=== PATIENT | male | born 1980 | race African-American/Black ===

== ENCOUNTER 2016-09-22 09:18 | Emergency (ER) | payer OTHER ==
--- NOTE | ~2016-09-22 | CT114 ---
[facility] A Service of [facility] & [facility] RADIOLOGY TEXT RESULTS PATIENT: KAYLEY BROCK SR. LOCATION: [facility] : 76 UNIT #: [id number] AGE: [address]: PHOENIX MAYER SEX: M ORDER DR: [id number] [facility] [address] [place], [place] [address] [id number] MR#: [id number] #: [id number] NAME: KAYLEY BROCK SR. : 1980 SEX: M STUDY DATE/TIME: 09/22/2016 11:48 UNIT: [facility] ROOM: STUDY DESCRIPTION: CT Soft Tissue Neck W Cont Attending Physician: Phoenix Mayer Aprn Ordering Physician: Tameka Hernandez M.D. Primary Care Physician: No Primary Care Physician MEDICAL IMAGING REPORT This report is preliminary unless electronic signature is present EXAM CT neck soft tissue with contrast dated 09/22/2016. COMPARISON None HISTORY Sore throat, headache, nausea and diarrhea for [address] neck soft tissue was obtained with IV contrast in the axial plane followed by sagittal and coronal reformats. This CT exam was performed with one or more of the following radiation dose reduction techniques: automatic exposure control, adjustment of mA and/or kV according to patient size, and iterative reconstruction. FINDINGS Prominence of adenoids is seen in the posterior and superior nasopharyngeal wall without any discrete lesions. There is also enlargement of bilateral tonsils, particularly in the right. Aerodigestive tract is slightly narrowed at the level of the oropharynx but it is patent below. There is mild prominence of soft tissue extending from the posterior aspect of the base of the tongue and floor of the mouth into bilateral valleculae. The left piriform sinus is not as well aerated as the right. Vocal cords, larynx and trachea are unremarkable. There are scattered lymph nodes in the neck with the relatively larger one in the left level 2 measuring 2.4 x 1.9 cm. The largest enlarged right level 2-A lymph node measures 1.9 x 1.7 cm. There is also a conglomeration of enlarged right level 2-B lymph node measuring 2.3 x 1.0 cm. The advertising internship space, parotid space, submandibular space, retropharyngeal space and thyroid gland are unremarkable. 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 [facility] A Service of [facility] RADIOLOGY TEXT RESULTS PATIENT: KAYLEY BROCK SR. LOCATION: [facility] : 76 UNIT #: [id number] AGE: [address]: PHOENIX MAYER SEX: M ORDER DR: artery. Internal and external carotid arteries are unremarkable. There is diffuse fatty infiltration of bilateral parotid glands. Degenerative changes are noted in the cervical spine. Nasal septum is deviated to the right. Imaged orbits of the ocular structures, brain and lung apices do not demonstrate any significant abnormality. IMPRESSION 1. Enlarged adenoids and bilateral tonsils are noted along with bilateral level 2-A and right level 2 lymph nodes. It is likely relating to inflammatory/infectious upper respiratory disease. Correlate clinically. No discrete lesion is seen within the tonsils of the adenoids to suggest an abscess. 2. There is asymmetrically slightly prominent soft tissue noted in the bilateral valleculae extending from the nearby posterior aspect of the floor of the mouth and base of the tongue. It is probably mildly prominent lymphoidal tissue suggestive of mild inflammatory change or it could be even within normal limits for this patient. There are no old studies to ensure stability. 3. Asymmetrical non-aeration of the left piriform sinus is seen. It could be related to pooled secretions based on statistics. Plaque-like lesion cannot be excluded based on the current mode of imaging. If there is clinical suspicion it can be considered. Direct visualization can be considered. Dictated by... Jamil Burger M.D. THIS IS AN ELECTRONICALLY VERIFIED REPORT Jamil Burger M.D. at 09/22/2016 5:18 PM CPR/erma TD: 09/22/2016 15:27 JOB #: [id number] MEDICAL IMAGING REPORT COPY
[2016-09-22 09:31] LABS: INFLUENZA A NEG (NEG); INFLUENZA B NEG (NEG)
[2016-09-22 10:20] LABS: BASOPHIL# 0.1 X10e3 (0-0.3); BASOPHIL% 0.4 % (0-2.5); DIFF IND YES; EOSINOPHIL# 0.1 X10e3 (0-0.7); EOSINOPHIL% 0.2 % (0.0-7.0); HEMATOCRIT 45.4 % (38.0-50.0); HEMOGLOBIN 14.9 gm/dL (13.0-16.0); LYMPHOCYTE# 1.5 X10e3 (1.0-3.5); LYMPHOCYTE% 5.8 % (17.0-45.0); MEAN CORPUSCULAR HGB CONC 32.9 g/dL (30-36); MONOCYTE# 2.6 X10e3 (0-1.0); NEUTROPHIL# 21.6 X10e3 (1.5-7.1); NEUTROPHIL% 83.6 % (40-75); PLATELET COUNT 202 X10e3 (140-420); RED BLOOD COUNT 5.54 X10e (3.90-5.60); RED CELL DISTRIBUTION WIDTH 14.3 % (11.0-15.5); WHITE BLOOD COUNT 25.9 X10e3 (4.0-10.5)
[2016-09-22 10:35] LABS: ANISOCYTOSIS SL; PLATELET ESTIMATE NORMAL (NORMAL)
[2016-09-22 10:40] LABS: BLOOD UREA NITROGEN 12 mg/dL (9-23); CALCIUM SERUM 8.9 mg/dL (8.4-10.2); CARBON DIOXIDE 28 mmol/L (22-31); CHLORIDE 94 mmol/L (100-111); CREATININE SERUM 1.1 mg/dL (0.6-1.4); GLOM FILT RATE Estimated ABOVE60 mL/min (>60); GLUCOSE FASTING 119 mg/dL (70-110); SODIUM 134 mmol/L (135-145)
[2016-09-22 10:47] LABS: POTASSIUM 2.9 mmol/L (3.5-5.1)
== END 2016-09-22 14:45 | disposition home or self-care (01) ==
LOC: CED 09:18
PROVIDERS: Nurse Practitioner Family
DX: J02.0 Streptococcal pharyngitis (principal); I10 Essential (primary) hypertension; F17.210 Nicotine dependence, cigarettes, uncomplicated
CPT/HCPCS: 70491; 80048; 85025; 87804; 87880; 96372; 99284; J0561; J1100; Q9967

== ENCOUNTER 2016-12-27 19:46 | Emergency (ER) | payer OTHER | END 2016-12-27 21:23 | disposition home or self-care (01) | LOC: CED 19:46 | DX: J02.0 Streptococcal pharyngitis (principal); F17.200 Nicotine dependence, unspecified, uncomplicated | CPT/HCPCS: 87880; 96372; 99282; J0561 ==